=== PATIENT | male | born 1980 | race Caucasian/White ===

== ENCOUNTER 2016-08-19 11:11 | Emergency (ER) | payer OTHER ==
[~2016-08-19] VITALS: Ht 185.4 cm; Wt 97.7 kg
[~2016-08-19 11:11] MED LIST: CLON1 PO; DIVA250T45 PO; FLUO20CA30 PO; SERT50TA12 PO
[2016-08-19 14:00] VITALS: BP 129/73
== END 2016-08-19 14:10 | disposition home or self-care (01) ==
LOC: EMS 11:13
DX: R07.81 Pleurodynia (principal); R03.0 Elevated blood-pressure reading, without diagnosis of hypertension; F17.210 Nicotine dependence, cigarettes, uncomplicated
CPT/HCPCS: 71020; 99284

== ENCOUNTER 2017-10-04 15:00 | Emergency (ER) | payer MEDICAID, OTHER ==
[~2017-10-04] VITALS: Ht 185.4 cm; Wt 100.0 kg
[2017-10-04 15:04] VITALS: BP 146/103
[2017-10-04] MEDS ORDERED: GABA-531 PO (16:06)
[2017-10-04] MEDS ORDERED: TRAZ-220 PO (16:06)
[2017-10-04] MEDS ORDERED: LURA20TA PO (16:06)
[2017-10-04] MEDS ORDERED: BUPR100 PO (16:06)
[2017-10-04] MEDS ORDERED: LAMO100 PO (16:06)
== END 2017-10-04 16:22 | disposition home or self-care (01) ==
LOC: EMS 15:01
DX: F41.9 Anxiety disorder, unspecified (principal); F31.9 Bipolar disorder, unspecified; F17.210 Nicotine dependence, cigarettes, uncomplicated; F19.90 Other psychoactive substance use, unspecified, uncomplicated; Z76.0 Encounter for issue of repeat prescription
CPT/HCPCS: 99281; 99283